=== PATIENT | female | born 1950 | race Caucasian/White ===

== ENCOUNTER 2017-08-24 16:46 | Inpatient (IN) | payer OTHER ==
[~2017-08-24] VITALS: Ht 157.5 cm; Wt 75.0 kg
[2017-08-24] MEDS ORDERED: morphine 2 MG INJ IV PRN (20:00)
[2017-08-24 20:57] VITALS: BP 122/54; RESP 18
[2017-08-24] MEDS ORDERED: NACL 0.9% 3 ML SYG IV SCH (22:30)
[2017-08-24] MEDS ORDERED: ALBUTEROL/IPRATROPIUM (NEB) 3 ML AMP HHN PRN (22:30)
[2017-08-24] MEDS ORDERED: ONDANSETRON 4 MG INJ IV PRN (22:30)
--- NOTE | 2017-08-24 23:06 | HP ---
Date/Time of Note Date/Time of Note DATE: 08/24/17 TIME: 22:34 Assessment/Plan Assessment/Plan Assessment/Plan 1. Presumed IAN -Patient with a creatinine of almost 2.4 on outside hospital. Baseline creatinine unknown -Treat with IV fluid -Urine electrolytes -Renal ultrasound -Nephrology consult 2. Ekbom's syndrome (delusional parasitosis) -Patient believes that she is infested with bugs. This is likely from illicit drug use -Will start patient on risperidone or olanzapine -Psychiatry consult will be placed 3. Hyponatremia -Likely from dehydration -NS IVF for now 4. History of COPD: No sign of acute exacerbation -Supplemental oxygen, bronchodilators and steroid as needed 5. History of hepatitis C -will check hep C antibody and also check for hep B. -If hep C confirmed, she will need to follow-up with her PCP for treatment 6. History of illicit drug use -We will place foster care social worker/upper caser consult to provide information to help her quit HPI/ROS Admit Date/Time Admit Date/Time Aug 24, 2017 at 18:52 Hx of Present Illness This is a 67-year-old female with a history of COPD, hepatitis C, IV drug use and cellulitis who initially presented to [facility] complaining of bugs coming out of her lips, ears and nose. She said mostly bugs crawls out of her lower lips and underneath her tongue. She also said she saw a bug from her left upper extremity and her lower extremities as well, the one on the lower extremity being winged. Patient is on active IV drug user. Lab shows a sodium of 128, BUN 30 and creatinine of 2.39. The rest of CBC and CMP were within normal limits. Her vitals were, BP 108/84, heart rate 114, respiratory rate 18, temp 36.3 and O2 sat of 98%. She was transferred to [facility] for insurance reasons. . Exam/Review of Systems Vital Signs Vitals Vital Signs Date Time Temp Pulse Resp B/P Pulse Ox O2 Delivery O2 Flow Rate FiO2 08/24/17 20:57 96.7 66 18 122/54 95 Exam Constitutional: alert, oriented, other (Appears somehow tired) Head: atraumatic, normocephalic ENMT: other (The back of the tongue there are 2 small erythematous pimple-like structures) Neck: non-tender, supple Respiratory: clear to auscultation, normal air movement Cardiovascular: nl pulses, regular rate and rhythm Extremities: normal pulses Skin: other (She has several old scars on her extremities mainly in the left forearm.) Medications Medications Current Medications Sodium Chloride (NS) 1,000 ml @ 75 mls/hr [id number] IV ; Start 08/24/17 at 20:00 ; Stop 08/25/17 at 20:00 Morphine Sulfate (morphine) 2 mg Q4H PRN IV PAIN; Start 08/24/17 at 20:00 Ondansetron HCl (Zofran Inj) 4 mg Q6H PRN IV NAUSEA AND/OR VOMITING; Start 08/24/17 at 20:00 Ondansetron HCl (Zofran Inj) 4 mg Q6H PRN IV NAUSEA AND/OR VOMITING; Start 08/24/17 at 22:30; Status UNV Acetaminophen (Tylenol Tab) 650 mg Q6H PRN PO PAIN LEVEL 1-3 OR FEVER; Start 08/24/17 at 22:30; Status UNV Heparin Sodium (Porcine) (Heparin (5000 Units/0.5 ml)) 5,000 unit Q12 SC ; Start 08/25/17 at 09:00; Status UNV CHRISTI BYRD MD Aug 24, 2017 22:47
[2017-08-24] MEDS ORDERED: HYDR-3011 PO (23:25)
[2017-08-24] MEDS ORDERED: METH10SO PO (23:25)
[2017-08-24] MEDS ORDERED: FLUO20CA38 PO (23:25)
[2017-08-24 23:29] VITALS: Ht 157.5 cm; Wt 75.0 kg
[2017-08-25] MEDS: RISPERIDONE 1 MG TAB PO SCH ×3 (00:12→20:41)
[2017-08-25] MEDS: SOD CHLORIDE 0.9% 1,000 ML IV SCH ×3 (00:17→15:38)
[2017-08-25 02:26] VITALS: BP 136/72; RESP 18
[2017-08-25 07:00] LABS: BASOPHILS % 0.5 % (0.0-2.0); EOSINOPHILS # 0.3 10^3/ul (0.0-0.5); HEMATOCRIT 38.6 % (37.0-47.0); LYMPHOCYTES # 3.4 10^3/ul (0.8-2.9); LYMPHOCYTES % 41.9 % (15.0-51.0); MEAN CORPUSCULAR HEMOGLOBIN 29.7 pg (29.0-33.0); MEAN CORPUSCULAR HGB CONC 33.7 g/dl (32.0-37.0); MEAN CORPUSCULAR VOLUME 88.3 fl (82.0-101.0); MEAN PLATELET VOLUME 9.5 fl (7.4-10.4); MONOCYTE # 0.6 10^3/ul (0.3-0.9); MONOCYTES % 6.9 % (0.0-11.0); NEUTROPHIL # 3.7 10^3/ul (1.6-7.5); NEUTROPHILS % 46.1 % (39.0-77.0); PLATELET COUNT 142 10^3/UL (140-415); RED BLOOD COUNT 4.37 10^6/ul (4.20-5.40); RED CELL DISTRIBUTION WIDTH 13.4 % (11.5-14.5)
[2017-08-25 07:23] LABS: ALANINE AMINOTRANSFERASE 49 IU/L (13-69); ALBUMIN 3.4 g/dl (3.3-4.9); ALKALINE PHOSPHATASE 94 IU/L (42-121); ANION GAP 13 (8-16); ASPARTATE AMINO TRANSFERASE 35 IU/L (15-46); BILIRUBIN,INDIRECT 0.3 mg/dl (0-1.1); BILIRUBIN,TOTAL 0.3 mg/dl (0.2-1.3); BLOOD UREA NITROGEN 32 mg/dl (7-20); CALCIUM 9.1 mg/dl (8.4-10.2); CARBON DIOXIDE 25 mmol/L (21-31); CHLORIDE 102 mmol/L (97-110); CHOL/HDL RATIO 4.5 RATIO; CHOLESTEROL 144 mg/dl (100-200); CREATININE 1.88 mg/dl (0.44-1.00); GLUCOSE 77 mg/dl (70-220); HDL CHOLESTEROL 32 mg/dl (35-98); MAGNESIUM 1.8 mg/dl (1.7-2.5); PHOSPHORUS 5.3 mg/dl (2.5-4.9); POTASSIUM 4.3 mmol/L (3.5-5.1); SODIUM 136 mmol/L (135-144); TOTAL PROTEIN 6.8 g/dl (6.1-8.1); TRIGLYCERIDES 173 mg/dl (0-149)
[2017-08-25 07:50] VITALS: BP 105/54; RESP 18
[2017-08-25] MEDS: HEPARIN 5,000 UNIT/0.5 ML VIAL SC SCH ×2 (09:00→20:43)
--- NOTE | 2017-08-25 09:39 | RADRPT ---
PROCEDURE: Renal US. CLINICAL INDICATION: ELEVATED CR TECHNIQUE: Multiple sonographic images of the kidneys were obtained. The images were reviewed on a PACS workstation. COMPARISON: No prior studies are available for comparison. FINDINGS: The kidneys are well visualized. The right kidney measures 8.7 x 3.9 x 4.8 cm. The left kidney measu res 9.2 x 3.8 x 4.2 cm. There are no focal areas of abnormal echogenicity. No calculus or solid mass es present. There is a 2 cm parenchymal cyst of the right kidney. There is no evidence for obstructi ve uropathy. No bladder masses stone is present. Bilateral ureteral jets were documented. IMPRESSION: No evidence of obstructive uropathy, calculus or solid renal mass. 2 cm parenchymal cyst right kidne y. .Stevie Mcintosh MD, MD Date Time Electronically viewed and signed by .Stevie Mcintosh MD, on 08/25/2017 09:39 .A/
[2017-08-25] MEDS ORDERED: METHADONE 10 MG TAB PO SCH (10:00)
[2017-08-25] MEDS: METHADONE (1 MG/1 ML PO SYG) PO SCH ×3 (12:00→20:42)
[2017-08-25 14:03] VITALS: BP 112/58; RESP 16
[2017-08-25 20:32] VITALS: BP 116/57; RESP 18
[2017-08-26 03:23] VITALS: BP 91/53; RESP 18
[2017-08-26] MEDS: SOD CHLORIDE 0.9% 1,000 ML IV SCH ×2 (04:48→18:06)
[2017-08-26 08:18] VITALS: BP 129/74; RESP 18
[2017-08-26] MEDS: METHADONE (1 MG/1 ML PO SYG) PO SCH (09:31)
[2017-08-26] MEDS: RISPERIDONE 1 MG TAB PO SCH ×2 (09:31→20:28)
[2017-08-26] MEDS: HEPARIN 5,000 UNIT/0.5 ML VIAL SC SCH ×2 (09:33→20:29)
[2017-08-26] MEDS: ACETAMINOPHEN 325 MG TAB PO PRN (11:30)
[2017-08-26 11:32] LABS: BASOPHILS % 0.5 % (0.0-2.0); EOSINOPHILS # 0.1 10^3/ul (0.0-0.5); EOSINOPHILS % 2.5 % (0.0-7.0); HEMATOCRIT 43.2 % (37.0-47.0); HEMOGLOBIN 14.4 g/dl (12.0-16.0); LYMPHOCYTES # 1.6 10^3/ul (0.8-2.9); LYMPHOCYTES % 29.7 % (15.0-51.0); MEAN CORPUSCULAR HEMOGLOBIN 29.6 pg (29.0-33.0); MEAN CORPUSCULAR HGB CONC 33.3 g/dl (32.0-37.0); MEAN CORPUSCULAR VOLUME 88.7 fl (82.0-101.0); MEAN PLATELET VOLUME 9.3 fl (7.4-10.4); MONOCYTE # 0.4 10^3/ul (0.3-0.9); MONOCYTES % 7.4 % (0.0-11.0); NEUTROPHIL # 3.3 10^3/ul (1.6-7.5); NEUTROPHILS % 59.5 % (39.0-77.0); PLATELET COUNT 128 10^3/UL (140-415); POSITIVE DIFF @See below; RED BLOOD COUNT 4.87 10^6/ul (4.20-5.40); RED CELL DISTRIBUTION WIDTH 13.5 % (11.5-14.5); WHITE BLOOD COUNT 5.5 10^3/ul (4.8-10.8)
--- NOTE | 2017-08-26 12:34 | PN ---
Date/Time of Note Date/Time of Note DATE: 08/25/17 TIME: 12:32 Assessment/Plan VTE Prophylaxis VTE Prophylaxis Intervention: SCD's Lines/Catheters IV Catheter Type (from Nrs): Peripheral IV Assessment/Plan Chief Complaint/Hosp Course subjective patient sleeping objective Physical exam General: Patient is laying in bed and answers questions appropriately Mentation: Patient is alert and oriented 4, Head: Normocephalic atraumatic Eyes: EOMI, pupils reactive to light Neck: Supple, nontender, midline Respiratory: Clear to auscultation bilaterally Cardiovascular: regular rate, no obvious murmurs Gastrointestinal: non-tender to palpation, bowel sounds heard. Neurological: Moves all extremities spontaneously Skin: No new skin lesions Assessment/Plan 1. Presumed IAN -Patient with a creatinine of almost 2.4 on outside hospital. Baseline creatinine unknown -Treat with IV fluid -Urine electrolytes -Renal ultrasound -will consult nephrology if IAN doesn't resolve 2. Ekbom's syndrome (delusional parasitosis) -Patient believes that she is infested with bugs. This is likely from illicit drug use -Will start patient on risperidone or olanzapine -Psychiatry consult outpatient 3. Hyponatremia -Likely from dehydration -NS IVF for now 4. History of COPD: No sign of acute exacerbation -Supplemental oxygen, bronchodilators and steroid as needed 5. History of hepatitis C -will check hep C antibody and also check for hep B. -If hep C confirmed, she will need to follow-up with her PCP for treatment dispo -verified dose of methadone from clinic, restarted methadone -f/u with am labs (this progress note is intended for 08/25/17, computer malfunction) Problems: Exam/Review of Systems Vital Signs Vitals Vital Signs Date Time Temp Pulse Resp B/P Pulse Ox O2 Delivery O2 Flow Rate FiO2 08/26/17 08:18 98.0 70 18 129/74 92 Intake and Output 08/25/17 08/25/17 08/26/17 14:59 22:59 06:59 Intake Total 2180 ml 1000 ml Balance 2180 ml 1000 ml Results Result Diagram: 08/26/17 1116 08/25/17 0624 Results 24 hrs Laboratory Tests Test 08/26/17 11:16 White Blood Count 5.5 # Red Blood Count 4.87 Hemoglobin 14.4 Hematocrit 43.2 Mean Corpuscular Volume 88.7 Mean Corpuscular Hemoglobin 29.6 Mean Corpuscular Hemoglobin Concent 33.3 Red Cell Distribution Width 13.5 Platelet Count 128 L Mean Platelet Volume 9.3 Neutrophils % 59.5 Lymphocytes % 29.7 Monocytes % 7.4 Eosinophils % 2.5 Basophils % 0.5 Nucleated Red Blood Cells % 0.0 Neutrophils # 3.3 Lymphocytes # 1.6 Monocytes # 0.4 Eosinophils # 0.1 Basophils # 0.0 Nucleated Red Blood Cells # 0.0 Medications Medications Current Medications Morphine Sulfate (morphine) 2 mg Q4H PRN IV PAIN; Start 08/24/17 at 20:00 Ondansetron HCl (Zofran Inj) 4 mg Q6H PRN IV NAUSEA AND/OR VOMITING; Start 08/24/17 at 20:00 Acetaminophen (Tylenol Tab) 650 mg Q6H PRN PO PAIN LEVEL 1-3 OR FEVER Last administered on 08/26/17 11:30; Admin Dose 650 MG; Start 08/24/17 at 22:30 Heparin Sodium (Porcine) (Heparin (5000 Units/0.5 ml)) 5,000 unit Q12 SC Last administered on 08/26/17 09:33; Admin Dose 5,000 UNIT; Start 08/25/17 at 09:00 Risperidone (Risperdal) 1 mg BID PO Last administered on 08/26/17 09:31; Admin Dose 1 MG; Start 08/24/17 at 23:30 Methadone HCl 108 mg 108 mg DAILY PO Last administered on 08/26/17 09:31; Admin Dose 108 MG; Start 08/25/17 at 12:00 Sodium Chloride (NS) 1,000 ml @ 70 mls/hr [id number] IV Last administered on 08/25 15:38; Admin Dose 70 MLS/HR; Start 08/25/17 at 14:30 Gabapentin (Neurontin) 100 mg TID PO ; Start 08/26/17 at 13:00 ABE BROWN Aug 26, 2017 12:34
--- NOTE | 2017-08-26 12:37 | PN ---
Date/Time of Note Date/Time of Note DATE: 08/26/17 TIME: 12:34 Assessment/Plan VTE Prophylaxis VTE Prophylaxis Intervention: ambulation, SCD's Lines/Catheters IV Catheter Type (from Nrsg): Peripheral IV Assessment/Plan Chief Complaint/Hosp Course Subjective Patient has similar complaints of bugs under her skin, also complains of left knee pain and thigh pain objective Physical exam General: Patient is laying in bed and answers questions appropriately Mentation: Patient is alert and oriented 4, Head: Normocephalic atraumatic Eyes: EOMI, pupils reactive to light Neck: Supple, nontender, midline Respiratory: Clear to auscultation bilaterally Cardiovascular: regular rate, no obvious murmurs Gastrointestinal: non-tender to palpation, bowel sounds heard. Neurological: Moves all extremities spontaneously Skin: No new skin lesions Assessment/Plan 1. Presumed IAN -Patient with a creatinine of almost 2.4 on outside hospital. Baseline creatinine unknown -Treat with IV fluid -Urine electrolytes -Renal ultrasound noted -will consult nephrology if IAN doesn't resolve 2. Ekbom's syndrome (delusional parasitosis) -Patient believes that she is infested with bugs. This is likely from illicit drug use -Will start patient on risperidone or olanzapine -Psychiatry consult outpatient 3. Hyponatremia -Likely from dehydration -NS IVF for now 4. History of COPD: No sign of acute exacerbation -Supplemental oxygen, bronchodilators and steroid as needed 5. History of hepatitis C -will check hep C antibody and also check for hep B. -viral load ordered 6. leg pain/knee pain -questionable fictitious vs real pathology for patient with strong psych issue symptoms -starting gabapentin, f/u xray dispo -verified dose of methadone from clinic, restarted methadone -renal panel was not ordered due to computer malfunction, stat cmp pending currently, will DC fluids if IAN resolved -Xray knee pending, started gabapentin for pain -DC back home if IAN resolved and xray negative Problems: Exam/Review of Systems Vital Signs Vitals Vital Signs Date Time Temp Pulse Resp B/P Pulse Ox O2 Delivery O2 Flow Rate FiO2 08/26/17 08:18 98.0 70 18 129/74 92 Intake and Output 08/25/17 08/25/17 08/26/17 14:59 22:59 06:59 Intake Total 2180 ml 1000 ml Balance 2180 ml 1000 ml Results Result Diagram: 08/26/17 1116 08/25/17 0624 Results 24 hrs Laboratory Tests Test 08/26/17 11:16 White Blood Count 5.5 # Red Blood Count 4.87 Hemoglobin 14.4 Hematocrit 43.2 Mean Corpuscular Volume 88.7 Mean Corpuscular Hemoglobin 29.6 Mean Corpuscular Hemoglobin Concent 33.3 Red Cell Distribution Width 13.5 Platelet Count 128 L Mean Platelet Volume 9.3 Neutrophils % 59.5 Lymphocytes % 29.7 Monocytes % 7.4 Eosinophils % 2.5 Basophils % 0.5 Nucleated Red Blood Cells % 0.0 Neutrophils # 3.3 Lymphocytes # 1.6 Monocytes # 0.4 Eosinophils # 0.1 Basophils # 0.0 Nucleated Red Blood Cells # 0.0 Medications Medications Current Medications Morphine Sulfate (morphine) 2 mg Q4H PRN IV PAIN; Start 08/24/17 at 20:00 Ondansetron HCl (Zofran Inj) 4 mg Q6H PRN IV NAUSEA AND/OR VOMITING; Start 08/24/17 at 20:00 Acetaminophen (Tylenol Tab) 650 mg Q6H PRN PO PAIN LEVEL 1-3 OR FEVER Last administered on 08/26/17 11:30; Admin Dose 650 MG; Start 08/24/17 at 22:30 Heparin Sodium (Porcine) (Heparin (5000 Units/0.5 ml)) 5,000 unit Q12 SC Last administered on 08/26/17 09:33; Admin Dose 5,000 UNIT; Start 08/25/17 at 09:00 Risperidone (Risperdal) 1 mg BID PO Last administered on 08/26/17 09:31; Admin Dose 1 MG; Start 08/24/17 at 23:30 Methadone HCl 108 mg 108 mg DAILY PO Last administered on 08/26/17 09:31; Admin Dose 108 MG; Start 08/25/17 at 12:00 Sodium Chloride (NS) 1,000 ml @ 70 mls/hr [id number] IV Last administered on 08/25 15:38; Admin Dose 70 MLS/HR; Start 08/25/17 at 14:30 Gabapentin (Neurontin) 100 mg TID PO ; Start 08/26/17 at 13:00 ABE BROWN Aug 26, 2017 12:37
[2017-08-26 12:50] LABS: CALCIUM 9.5 mg/dl (8.4-10.2); CREATININE 1.26 mg/dl (0.44-1.00); POTASSIUM 4.8 mmol/L (3.5-5.1)
[2017-08-26] MEDS: GABAPENTIN 100 MG CAP PO SCH ×2 (13:12→20:28)
--- NOTE | 2017-08-26 13:54 | RADRPT ---
PROCEDURE: X-RAY LEFT KNEE CLINICAL INDICATION: Left knee pain. TECHNIQUE: Three views of the left knee are available for review. COMPARISON: None available FINDINGS: There is mild medial joint space narrowing and there is medial chondrocalcinosis. There is moderate arthrosis change of the lateral compartment and there is chondrocalcinosis. Minimal patellofemoral a rthrosis is seen. There is mild fusiform thickening of the patellar tendon density which may indicat e patellar tendonitis. There is a small joint effusion. The bones are osteopenic. No evidence for ac preet fracture. IMPRESSION: 1. Moderate lateral compartment and mild medial compartment and minimal patellofemoral arthrosis. 2. Meniscal chondrocalcinosis. Findings are most likely degenerative but can be seen with pseudogou t. 3. No evidence for acute fracture. The bones are osteopenic. RPTAT: XX .Joaquin Rodriguez MD, Date Time Electronically viewed and signed by .Joaquin Rodriguez MD, on 08/26/2017 13:54 .T/
[2017-08-26] MEDS: HYDROCODONE/APAP (5/325) TAB PO PRN (14:43)
[2017-08-26 15:28] VITALS: BP 125/75; RESP 18
[2017-08-26 20:59] VITALS: BP 100/50; RESP 16
[2017-08-27 03:18] VITALS: BP 134/61; RESP 16
[2017-08-27] MEDS: SOD CHLORIDE 0.9% 1,000 ML IV SCH (04:10)
[2017-08-27 06:53] LABS: ADD UMIC YES; UR ASCORBIC ACID NEGATIVE (NEGATIVE); UR BACTERIA FEW /HPF (NONE SEEN); UR BILIRUBIN (Dip) NEGATIVE (NEGATIVE); UR BLOOD (Dip) NEGATIVE (NEGATIVE); UR CLARITY CLEAR (CLEAR); UR COLOR YELLOW (YELLOW); UR GLUCOSE (Dip) NEGATIVE (NEGATIVE); UR KETONES (Dip) NEGATIVE (NEGATIVE); UR LEUKOCYTE ESTERASE (Dip) TRACE Leu/ul (NEGATIVE); UR NITRITE (Dip) NEGATIVE (NEGATIVE); UR RBC 1 /HPF (0-5); UR SPECIFIC GRAVITY (Dip) 1.012 (1.003-1.030); UR TOTAL PROTEIN (Dip) NEGATIVE (NEGATIVE); UR UROBILINOGEN (Dip) 1+ mg/dL (NEGATIVE)
[2017-08-27 07:17] LABS: CALCIUM 8.5 mg/dl (8.4-10.2); CREATININE 1.09 mg/dl (0.44-1.00); MAGNESIUM 1.5 mg/dl (1.7-2.5); PHOSPHORUS 2.9 mg/dl (2.5-4.9); POTASSIUM 4.9 mmol/L (3.5-5.1)
[2017-08-27 07:18] LABS: POTASSIUM,URINE RANDOM 19.5 mmol/L (25-125)
[2017-08-27 08:00] VITALS: BP 141/65; RESP 18
[2017-08-27] MEDS: ONDANSETRON 4 MG INJ IV PRN (08:58)
[2017-08-27 09:06] LABS: BASOPHILS % 0.6 % (0.0-2.0); EOSINOPHILS # 0.2 10^3/ul (0.0-0.5); EOSINOPHILS % 2.4 % (0.0-7.0); HEMATOCRIT 38.3 % (37.0-47.0); HEMOGLOBIN 12.4 g/dl (12.0-16.0); LYMPHOCYTES # 1.9 10^3/ul (0.8-2.9); LYMPHOCYTES % 29.6 % (15.0-51.0); MEAN CORPUSCULAR HEMOGLOBIN 29.2 pg (29.0-33.0); MEAN CORPUSCULAR HGB CONC 32.4 g/dl (32.0-37.0); MEAN CORPUSCULAR VOLUME 90.3 fl (82.0-101.0); MEAN PLATELET VOLUME 9.8 fl (7.4-10.4); MONOCYTE # 0.5 10^3/ul (0.3-0.9); MONOCYTES % 7.8 % (0.0-11.0); NEUTROPHIL # 3.9 10^3/ul (1.6-7.5); NEUTROPHILS % 59.1 % (39.0-77.0); PLATELET COUNT 141 10^3/UL (140-415); RED BLOOD COUNT 4.24 10^6/ul (4.20-5.40); RED CELL DISTRIBUTION WIDTH 13.5 % (11.5-14.5); WHITE BLOOD COUNT 6.6 10^3/ul (4.8-10.8)
[2017-08-27] MEDS: METHADONE (1 MG/1 ML PO SYG) PO SCH (09:48)
[2017-08-27] MEDS: RISPERIDONE 1 MG TAB PO SCH ×2 (09:49→20:14)
[2017-08-27] MEDS: GABAPENTIN 100 MG CAP PO SCH ×3 (09:49→20:14)
[2017-08-27] MEDS: HEPARIN 5,000 UNIT/0.5 ML VIAL SC SCH ×2 (09:53→20:19)
--- NOTE | 2017-08-27 09:56 | PN ---
Date/Time of Note Date/Time of Note DATE: 08/27/17 TIME: 09:56 Assessment/Plan VTE Prophylaxis VTE Prophylaxis Intervention: SCD's Lines/Catheters IV Catheter Type (from Nrsg): Peripheral IV Assessment/Plan Assessment/Plan 1. IAN- improving - Patient renal function shows improvement and has been trending downward with IVF. Will stop IVF given patient is eating and drinking - Patient with a creatinine of almost 2.4 on outside hospital. Baseline creatinine unknown - Renal ultrasound noted 2. Ekbom's syndrome (delusional parasitosis) - Patient believes that she is infested with bugs. This is likely from illicit drug use - Patient started on Risperidone and will continue to monitor - Psychiatry consult outpatient 3. Hyponatremia- resolved - Likely from dehydration 4. History of COPD - stable and in no acute exacerbation - Supplemental oxygen, bronchodilators and steroid as needed 5. History of hepatitis C - Hep C Ab positive and viral load ordered 6. leg pain/knee pain - questionable fictitious vs real pathology for patient with strong psych issue symptoms - Started on Gabapentin with relief - Xray shows "Moderate lateral compartment and mild medial compartment and minimal patellofemoral arthrosis." no acute fracture appreciated 7. Disposition - PT/OT evaluation for d/c dispo - if renal function continues to improve will d/c in next 24 hours Subjective 24 Hr Interval Summary Free Text/Dictation Patient states she does not feel well but unable to pinpoint what is causing her distress. Feels like there are bugs crawling in her throat and then began to cry due to losing close friends recently. Patients mood quickly improved and was talking about her significant other and dog. Exam/Review of Systems Vital Signs Vitals Vital Signs Date Time Temp Pulse Resp B/P Pulse Ox O2 Delivery O2 Flow Rate FiO2 08/27/17 08:00 99.3 78 18 141/65 95 Intake and Output 08/26/17 08/26/17 08/27/17 15:00 23:00 07:00 Intake Total 300 ml 1510 ml Balance 300 ml 1510 ml Exam General: Patient is laying in bed and answers questions appropriately. flight of ideas as well as emotions. no acute distress Mentation: Patient is alert and oriented 4, Head: Normocephalic atraumatic Eyes: EOMI, pupils reactive to light Neck: Supple, nontender, midline Respiratory: Clear to auscultation bilaterally. no wheezes or rhonchi Cardiovascular: regular rate, no obvious murmurs Gastrointestinal: non-tender to palpation, bowel sounds heard. Neurological: Moves all extremities spontaneously Skin: No new skin lesions Results Result Diagram: 08/27/17 0810 08/27/17 0507 Results 24 hrs Laboratory Tests Test 08/26/17 11:16 08/26/17 12:15 08/27/17 05:07 08/27/17 06:25 White Blood Count 5.5 # Red Blood Count 4.87 Hemoglobin 14.4 Hematocrit 43.2 Mean Corpuscular Volume 88.7 Mean Corpuscular Hemoglobin 29.6 Mean Corpuscular Hemoglobin Concent 33.3 Red Cell Distribution Width 13.5 Platelet Count 128 L Mean Platelet Volume 9.3 Neutrophils % 59.5 Lymphocytes % 29.7 Monocytes % 7.4 Eosinophils % 2.5 Basophils % 0.5 Nucleated Red Blood Cells % 0.0 Neutrophils # 3.3 Lymphocytes # 1.6 Monocytes # 0.4 Eosinophils # 0.1 Basophils # 0.0 Nucleated Red Blood Cells # 0.0 Sodium Level 138 138 Potassium Level 4.8 4.9 Chloride Level 106 110 Carbon Dioxide Level 23 20 L Anion Gap 14 13 Blood Urea Nitrogen 25 H 21 H Creatinine 1.26 H 1.09 H Glucose Level 136 # 98 Calcium Level 9.5 8.5 Free Thyroxine 1.33 Phosphorus Level 2.9 # Magnesium Level 1.5 L Urine Color YELLOW Urine Clarity CLEAR Urine pH 5.0 Urine Specific [place] 1.012 Urine Ketones NEGATIVE Urine Nitrite NEGATIVE Urine Bilirubin NEGATIVE Urine Urobilinogen 1+ H Urine Leukocyte Esterase TRACE A Urine Microscopic RBC 1 Urine Microscopic WBC 2 Urine Bacteria FEW A Urine Hemoglobin NEGATIVE Urine Random Sodium 83 Urine Random Potassium 19.5 L Urine Glucose NEGATIVE Urine Total Protein NEGATIVE Test 08/27/17 08:10 White Blood Count 6.6 Red Blood Count 4.24 Hemoglobin 12.4 Hematocrit 38.3 Mean Corpuscular Volume 90.3 Mean Corpuscular Hemoglobin 29.2 Mean Corpuscular Hemoglobin Concent 32.4 Red Cell Distribution Width 13.5 Platelet Count 141 Mean Platelet Volume 9.8 Neutrophils % 59.1 Lymphocytes % 29.6 Monocytes % 7.8 Eosinophils % 2.4 Basophils % 0.6 Nucleated Red Blood Cells % 0.0 Neutrophils # 3.9 Lymphocytes # 1.9 Monocytes # 0.5 Eosinophils # 0.2 Basophils # 0.0 Nucleated Red Blood Cells # 0.0 Medications Medications Current Medications Ondansetron HCl (Zofran Inj) 4 mg Q6H PRN IV NAUSEA AND/OR VOMITING Last administered on 08/27/17 08:58; Admin Dose 4 MG; Start 08/24/17 at 20:00 Acetaminophen (Tylenol Tab) 650 mg Q6H PRN PO PAIN LEVEL 1-3 OR FEVER Last administered on 08/26/17 11:30; Admin Dose 650 MG; Start 08/24/17 at 22:30 Heparin Sodium (Porcine) (Heparin (5000 Units/0.5 ml)) 5,000 unit Q12 SC Last administered on 08/26/17 20:29; Admin Dose 5,000 UNIT; Start 08/25/17 at 09:00 Risperidone (Risperdal) 1 mg BID PO Last administered on 08/26/17 20:28; Admin Dose 1 MG; Start 08/24/17 at 23:30 Methadone HCl 108 mg 108 mg DAILY PO Last administered on 08/26/17 09:31; Admin Dose 108 MG; Start 08/25/17 at 12:00 Sodium Chloride (NS) 1,000 ml @ 70 mls/hr [id number] IV Last administered on 04:10; Admin Dose 70 MLS/HR; Start 08/25/17 at 14:30 Gabapentin (Neurontin) 100 mg TID PO Last administered on 08/26/17 20:28; Admin Dose 100 MG; Start 08/26/17 at 13:00 Morphine Sulfate (morphine) 2 mg Q4H PRN IV PAIN LEVEL 7-10; Start 08/26/17 at 13:30 Acetaminophen/ Hydrocodone Bitart ([place] (5/325)) 1 tab Q6H PRN PO PAIN LEVEL 4 -6 Last administered on 08/26/17 14:43; Admin Dose 1 TAB; Start 08/26/17 at 13:30 RICKY MUNIZ MD Aug 27, 2017 09:56
[2017-08-27] MEDS: HYDROCODONE/APAP (5/325) TAB PO PRN ×3 (09:57→23:22)
[2017-08-27 15:07] VITALS: BP 135/86; RESP 16
[2017-08-27 20:09] VITALS: BP 131/62; RESP 18
[2017-08-27] MEDS: ACETAMINOPHEN 325 MG TAB PO PRN (21:53)
[2017-08-28 02:07] VITALS: BP 142/70; RESP 18
[2017-08-28 07:17] LABS: ALBUMIN 3.3 g/dl (3.3-4.9); CALCIUM 9.2 mg/dl (8.4-10.2); CREATININE 1.04 mg/dl (0.44-1.00); MAGNESIUM 1.6 mg/dl (1.7-2.5); PHOSPHORUS 3.1 mg/dl (2.5-4.9); POTASSIUM 4.2 mmol/L (3.5-5.1)
[2017-08-28 07:46] VITALS: RESP 18
[2017-08-28 08:00] VITALS: BP 145/65; PULSE 88
[2017-08-28] MEDS: morphine 2 MG INJ IV PRN ×3 (08:08→15:39)
[2017-08-28] MEDS: GABAPENTIN 100 MG CAP PO SCH ×3 (09:26→21:18)
[2017-08-28] MEDS: METHADONE (1 MG/1 ML PO SYG) PO SCH ×2 (09:26→09:31)
[2017-08-28] MEDS: RISPERIDONE 1 MG TAB PO SCH ×2 (09:27→21:18)
[2017-08-28] MEDS: HEPARIN 5,000 UNIT/0.5 ML VIAL SC SCH ×2 (09:28→21:27)
--- NOTE | 2017-08-28 10:45 | PN ---
Date/Time of Note Date/Time of Note DATE: 08/28/17 TIME: 10:45 Assessment/Plan VTE Prophylaxis VTE Prophylaxis Intervention: SCD's Lines/Catheters IV Catheter Type (from Nrs): Peripheral IV Assessment/Plan Assessment/Plan 1. IAN- resolving - Renal function continues to improve - Patient with a creatinine of almost 2.4 on outside hospital. Baseline creatinine unknown - Renal ultrasound noted 2. Ekbom's syndrome (delusional parasitosis) - Patient believes that she is infested with bugs. This is likely from illicit drug use - Patient started on Risperidone with no improvement. Patient states she has been experiencing these symptoms since she lost her best friend 5 months ago. Offered psychiatrist consultation which she agreed to. Consult placed for medication recommendations 3. Hyponatremia- resolved - Likely from dehydration 4. History of COPD - stable and in no acute exacerbation - Supplemental oxygen, bronchodilators and steroid as needed 5. History of hepatitis C - Hep C Ab positive and viral load ordered 6. leg pain/knee pain - questionable fictitious vs real pathology for patient with strong psych issue symptoms - Started on Gabapentin with relief - Xray shows "Moderate lateral compartment and mild medial compartment and minimal patellofemoral arthrosis." no acute fracture appreciated - PT/OT recommending FWW 7. Disposition - Psych evaluation - PT recommending discharge home with FWW when stable Subjective 24 Hr Interval Summary Free Text/Dictation Patient very emotional and states she doesn't feel like herself. complaining of sensation of bugs crawling under her skin and out of the orafices in her face. Agreeing to speak with a psychiatrist for medication recommendations. Exam/Review of Systems Vital Signs Vitals Vital Signs Date Time Temp Pulse Resp B/P Pulse Ox O2 Delivery O2 Flow Rate FiO2 08/28/17 08:00 88 145/65 08/28/17 07:46 97.4 18 100 Intake and Output 08/27/17 08/27/17 08/28/17 14:59 22:59 06:59 Intake Total 2050 ml 550 ml Balance 2050 ml 550 ml Exam General: Patient is laying in bed and answers questions appropriately. emotional and crying when she speaks about her current medical condition Mentation: Patient is alert and oriented 4, Head: Normocephalic atraumatic Eyes: EOMI, pupils reactive to light Neck: Supple, nontender, midline Respiratory: Clear to auscultation bilaterally. no wheezes or rhonchi Cardiovascular: regular rate, no obvious murmurs Gastrointestinal: non-tender to palpation, bowel sounds heard. Neurological: Moves all extremities spontaneously Skin: No new skin lesions Results Result Diagram: 08/27/17 0810 08/28/17 05 Results 24 hrs Laboratory Tests Test 08/28/17 05:27 08/28/17 08:07 Sodium Level 137 Potassium Level 4.2 Chloride Level 104 Carbon Dioxide Level 27 Anion Gap 10 Blood Urea Nitrogen 16 Creatinine 1.04 H Glucose Level 94 Calcium Level 9.2 Phosphorus Level 3.1 Magnesium Level 1.6 L Albumin 3.3 Bedside Glucose 98 Medications Medications Current Medications Ondansetron HCl (Zofran Inj) 4 mg Q6H PRN IV NAUSEA AND/OR VOMITING Last administered on 08/27/17 08:58; Admin Dose 4 MG; Start 08/24/17 at 20:00 Acetaminophen (Tylenol Tab) 650 mg Q6H PRN PO PAIN LEVEL 1-3 OR FEVER Last administered on 08/27/17 21:53; Admin Dose 650 MG; Start 08/24/17 at 22:30 Heparin Sodium (Porcine) (Heparin (5000 Units/0.5 ml)) 5,000 unit Q12 SC Last administered on 08/28/17 09:28; Admin Dose 5,000 UNIT; Start 08/25/17 at 09:00 Risperidone (Risperdal) 1 mg BID PO Last administered on 08/28/17 09:27; Admin Dose 1 MG; Start 08/24/17 at 23:30 Methadone HCl (Methadone Liq (Ped)) 108 mg DAILY PO Last administered on 09:31; Admin Dose 108 MG; Start 08/25/17 at 12:00 Gabapentin (Neurontin) 100 mg TID PO Last administered on 08/28/17 09:26; Admin Dose 100 MG; Start 08/26/17 at 13:00 Morphine Sulfate (morphine) 2 mg Q4H PRN IV PAIN LEVEL 7-10 Last administered on 08/28/17 08:08; Admin Dose 2 MG; Start 08/26/17 at 13:30 Acetaminophen/ Hydrocodone Bitart ([place] (5/325)) 1 tab Q6H PRN PO PAIN LEVEL 4 -6 Last administered on 12/11/17at 23:22; Admin Dose 1 TAB; Start 08/26/17 at 13:30 RICKY MUNIZ MD Aug 28, 2017 10:45
[2017-08-28] MEDS ORDERED: hydrOXYzine HCL 10 MG TAB PO PRN (11:00)
[2017-08-28] MEDS ORDERED: POLYETHYLENE GLYCOL 17 GM PACKET PO PRN (11:00)
[2017-08-28 14:07] VITALS: BP 123/56; RESP 19
[2017-08-28] MEDS: VITAMIN A & D 5 GM OINT PACKET TOP SCH ×2 (16:53→21:18)
[2017-08-28] MEDS: FLUOXETINE 20 MG CAP PO SCH (16:53)
--- NOTE | 2017-08-28 16:55 | PSY ---
Date/Time of Note Date/Time of Note DATE: 08/28/17 TIME: 16:50 Psychiatric Subjective Eval Consent Pt consented to telemedicine: Yes Subjective Evaluation Patient location: emergency Chief Complaint: bugs crawling under my skin History of present illness 67 yo disabled female with multiple medical problems and long h heroin addiction, on methadone; pt c/o bugs and insects crawling under her skin, falling out of her mouth and ears and eyes. She says it has been happening since her friend dies about a year ago. Interestingly enough even though this presentation is more typical for the patients with hx stimulants use, the pt denies using meth or cocaine. UDS not available. Pt says she is depressed, she is on prozac 20 mg, but she denies any SI or HI, denies feeling hopeles. Past psychiatric history pt reports no hx hospitalizations or SA Family History denies Medical history chart reviewed Allergies: Coded Allergies: No Known Allergies (Verified Allergy, Unknown, 08/24/17) Substance Abuse Substance abuse history: Yes Prior substance abuse treatmen: Yes Social History Marital status: Level of education: HS DPA/Conservatorship: No Occupation/[employer]: disabled Psychiatric Objective Eval Review of Systems: Review of Systems: Not Applicable Physical Examination: Physical Examination: Not Applicable Mental Status Examination: Appearance: Disheveled Eye Contact: Good Psychomotor Activity: Normal Behavior: Cooperative Speech: Clear AFFECT: Anxious Mood: Anxious Though Process: Linear Thought Content: Delusions, Hallucinations Suicidal: No Homicidal: No On 72 hour hold: No Orientation: x4 Cognition: Alert Insight: Impared Judgement: Impared Attention Span: Intact Laboratory Results Laboratory Tests Test 08/27/17 05:07 08/27/17 06:25 08/27/17 08:10 08/28/17 05:27 Sodium Level 138mmol/L 137mmol/L Potassium Level 4.9mmol/L 4.2mmol/L Chloride Level 110mmol/L 104mmol/L Carbon Dioxide Level 20mmol/L 27mmol/L Anion Gap 13 10 Blood Urea Nitrogen 21mg/dl 16mg/dl Creatinine 1.09mg/dl 1.04mg/dl Glucose Level 98mg/dl 94mg/dl Calcium Level 8.5mg/dl 9.2mg/dl Phosphorus Level 2.9mg/dl 3.1mg/dl Magnesium Level 1.5mg/dl 1.6mg/dl Urine Color YELLOW Urine Clarity CLEAR Urine pH 5.0 Urine Specific [place] 1.012 Urine Ketones NEGATIVEmg/dL Urine Nitrite NEGATIVEmg/dL Urine Bilirubin NEGATIVEmg/dL Urine Urobilinogen 1+mg/dL Urine Leukocyte Esterase TRACELeu/ul Urine Microscopic RBC 1/HPF Urine Microscopic WBC 2/HPF Urine Bacteria FEW/HPF Urine Hemoglobin NEGATIVEmg/dL Urine Random Sodium 83mmol/L Urine Random Potassium 19.5mmol/L Urine Glucose NEGATIVEmg/dL Urine Total Protein NEGATIVEmg/dl White Blood Count 6.610^3/ul Red Blood Count 4.2410^6/ul Hemoglobin 12.4g/dl Hematocrit 38.3% Mean Corpuscular Volume 90.3fl Mean Corpuscular Hemoglobin 29.2pg Mean Corpuscular Hemoglobin Concent 32.4g/dl Red Cell Distribution Width 13.5% Platelet Count 93760^3/UL Mean Platelet Volume 9.8fl Neutrophils % 59.1% Lymphocytes % 29.6% Monocytes % 7.8% Eosinophils % 2.4% Basophils % 0.6% Nucleated Red Blood Cells % 0.0/100WBC Neutrophils # 3.910^3/ul Lymphocytes # 1.910^3/ul Monocytes # 0.510^3/ul Eosinophils # 0.210^3/ul Basophils # 0.010^3/ul Nucleated Red Blood Cells # 0.010^3/ul Albumin 3.3g/dl Test 08/28/17 08:07 Bedside Glucose 98mg/dL Assessment and Plan Assessment/Diagnosis Eldon I: Unspecified psychotic disorder. Opiate use disorder. Eldon II: defered Eldon III: as per record Eldon IV: moderate Eldon V: gaf 45 Recommendation/Plan Medication Management Agree with risperidone; consider increasing to 0.5 mg po bid and 1-2 mg poqhs if not adverse effects. continue on prozac 20 mg poqd. Psychotherapy defer to outpt Pt. Caregiver/Family Education n/a Follow-up/Disposition refer to outpt mental health upon discharge AMBER FINE MD Aug 28, 2017 16:55
[2017-08-28] MEDS: HYDROCODONE/APAP (5/325) TAB PO PRN (18:28)
[2017-08-28 20:36] VITALS: BP 115/55; RESP 18
[2017-08-29 02:00] VITALS: BP 125/52; RESP 18
[2017-08-29 06:33] LABS: CALCIUM 9.3 mg/dl (8.4-10.2); CREATININE 1.16 mg/dl (0.44-1.00); MAGNESIUM 1.5 mg/dl (1.7-2.5); PHOSPHORUS 3.6 mg/dl (2.5-4.9); POTASSIUM 5.2 mmol/L (3.5-5.1)
[2017-08-29 08:01] VITALS: BP 107/56; RESP 16
[2017-08-29] MEDS: RISPERIDONE 1 MG TAB PO SCH ×3 (09:00→20:13)
[2017-08-29] MEDS: VITAMIN A & D 5 GM OINT PACKET TOP SCH ×2 (09:23→20:13)
[2017-08-29] MEDS: FLUOXETINE 20 MG CAP PO SCH (09:23)
[2017-08-29] MEDS: METHADONE (1 MG/1 ML PO SYG) PO SCH (09:23)
[2017-08-29] MEDS: GABAPENTIN 100 MG CAP PO SCH ×3 (09:23→20:13)
[2017-08-29] MEDS: HEPARIN 5,000 UNIT/0.5 ML VIAL SC SCH ×2 (09:32→20:20)
[2017-08-29] MEDS: morphine 2 MG INJ IV PRN ×3 (09:35→20:21)
--- NOTE | 2017-08-29 11:09 | PN ---
Date/Time of Note Date/Time of Note DATE: 08/29/17 TIME: 11:09 Assessment/Plan VTE Prophylaxis VTE Prophylaxis Intervention: SCD's Lines/Catheters IV Catheter Type (from Nrs): Peripheral IV Urinary Cath still in place: No Assessment/Plan Assessment/Plan 1. IAN - Renal function has been stable but Cr slightly elevated this am. Will decrease dose of Risperidol to 0.5 mg BID - Patient with a creatinine of almost 2.4 on outside hospital records. Baseline creatinine unknown - Renal ultrasound noted 2. Ekbom's syndrome (delusional parasitosis) - Patient believes that she is infested with bugs. This is likely from illicit drug use - Patient started on Risperidone with no improvement. Patient states she has been experiencing these symptoms since she lost her best friend 5 months ago. - Telepsych consultation appreciated and agree with continuing patient on Prozac as well as risperidol. Patient will need outpatient psych follow up 3. Hyponatremia- resolved - Likely from dehydration 4. History of COPD - stable and in no acute exacerbation - Supplemental oxygen, bronchodilators and steroid as needed 5. History of hepatitis C - Hep C Ab positive and viral load negative 6. leg pain/knee pain - questionable fictitious vs real pathology for patient with strong psych issue symptoms - Started on Gabapentin with relief - Xray shows "Moderate lateral compartment and mild medial compartment and minimal patellofemoral arthrosis." no acute fracture appreciated - PT/OT recommending FWW 7. hyperkalemia - given dose Kayexalate - continue to monitor - asymptomatic 8. HypoMg - 1.5, replaced 9. Disposition - Cr slightly elevated, if trending down in the am with adjustment of medication , will d/c with recommendations to follow up with psych as outpatient Subjective 24 Hr Interval Summary Free Text/Dictation Patient states she is still thinks she is spitting up bugs but when examined sputum was just coffee tinged as well as cookie crumbs which she had just finished eating. No acute overnight events. Exam/Review of Systems Vital Signs Vitals Vital Signs Date Time Temp Pulse Resp B/P Pulse Ox O2 Delivery O2 Flow Rate FiO2 08/29/17 08:01 98.4 63 16 107/56 95 Intake and Output 08/28/17 08/28/17 08/29/17 14:59 22:59 06:59 Intake Total 820 ml 600 ml Balance 820 ml 600 ml Exam General: Patient is laying in bed and answers questions appropriately. in no acute distress. eating and drinking in no acute distress Mentation: Patient is alert and oriented 4, Head: Normocephalic atraumatic Eyes: EOMI, pupils reactive to light Neck: Supple, nontender, midline Respiratory: Clear to auscultation bilaterally. no wheezes or rhonchi Cardiovascular: regular rate, no obvious murmurs Gastrointestinal: non-tender to palpation, bowel sounds heard. Neurological: Moves all extremities spontaneously Skin: No new skin lesions Results Result Diagram: 08/27/17 0810 08/29/17 0504 Results 24 hrs Laboratory Tests Test 08/29/17 05:04 Sodium Level 139 Potassium Level 5.2 H Chloride Level 105 Carbon Dioxide Level 29 Anion Gap 10 Blood Urea Nitrogen 14 Creatinine 1.16 H Glucose Level 72 Calcium Level 9.3 Phosphorus Level 3.6 Magnesium Level 1.5 L Albumin 3.0 L Medications Medications Current Medications Ondansetron HCl (Zofran Inj) 4 mg Q6H PRN IV NAUSEA AND/OR VOMITING Last administered on 08/27/17 08:58; Admin Dose 4 MG; Start 08/24/17 at 20:00 Acetaminophen (Tylenol Tab) 650 mg Q6H PRN PO PAIN LEVEL 1-3 OR FEVER Last administered on 08/27/17 21:53; Admin Dose 650 MG; Start 08/24/17 at 22:30 Heparin Sodium (Porcine) (Heparin (5000 Units/0.5 ml)) 5,000 unit Q12 SC Last administered on 08/29/17 09:32; Admin Dose 5,000 UNIT; Start 08/25/17 at 09:00 Methadone HCl (Methadone Liq (Ped)) 108 mg DAILY PO Last administered on 09:23; Admin Dose 108 MG; Start 08/25/17 at 12:00 Gabapentin (Neurontin) 100 mg TID PO Last administered on 08/29/17 09:23; Admin Dose 100 MG; Start 08/26/17 at 13:00 Morphine Sulfate (morphine) 2 mg Q4H PRN IV PAIN LEVEL 7-10 Last administered on 08/29/17 09:35; Admin Dose 2 MG; Start 08/26/17 at 13:30 Acetaminophen/ Hydrocodone Bitart ([place] (5/325)) 1 tab Q6H PRN PO PAIN LEVEL 4 -6 Last administered on 08/28/17 18:28; Admin Dose 1 TAB; Start 08/26/17 at 13:30 Hydroxyzine HCl (Atarax) 10 mg Q6H PRN PO ITCHING; Start 08/28/17 at 11:00 Polyethylene Glycol (Miralax) 17 gm DAILY PRN PO CONSTIPATION; Start 08/28/17 at 11:00 Vitamin A/Vitamin D (Vitamin A & D Oint) 1 applic BID TOP Last administered on 08/29/17 09:23; Admin Dose 1 APPLIC; Start 08/28/17 at 11:00 Fluoxetine HCl (Prozac) 20 mg DAILY PO Last administered on 08/29/17 09:23; Admin Dose 20 MG; Start 08/28/17 at 15:30 Risperidone (Risperdal) 0.5 mg BID PO Last administered on 08/29/17 09:23; Admin Dose 0.5 MG; Start 08/29/17 at 09:30 RICKY MUNIZ MD Aug 29, 2017 11:09
[2017-08-29] MEDS: FAMOTIDINE 20 MG TAB PO SCH (12:46)
[2017-08-29] MEDS: HYDROCODONE/APAP (5/325) TAB PO PRN ×3 (12:46→23:42)
[2017-08-29] MEDS ORDERED: NA POLYST SULFON 15 GM/60 ML BTL PO ONE (14:30)
[2017-08-29] MEDS: ONDANSETRON 4 MG INJ IV PRN (14:42)
[2017-08-29 15:00] VITALS: BP 105/52; RESP 18
[2017-08-29] MEDS ORDERED: MAGNESIUM SULFATE 2 GM/50 ML 50 ML IVPB ONE (16:00)
[2017-08-29 20:23] VITALS: BP 120/53; RESP 20
[2017-08-30] MEDS: morphine 2 MG INJ IV PRN ×5 (00:36→21:33)
[2017-08-30 02:00] VITALS: BP 116/57; RESP 19
[2017-08-30 07:50] LABS: CALCIUM 8.9 mg/dl (8.4-10.2); CREATININE 0.96 mg/dl (0.44-1.00); MAGNESIUM 1.8 mg/dl (1.7-2.5); PHOSPHORUS 3.9 mg/dl (2.5-4.9); POTASSIUM 4.4 mmol/L (3.5-5.1)
[2017-08-30 07:57] VITALS: BP 129/56; RESP 16
[2017-08-30] MEDS: FAMOTIDINE 20 MG TAB PO SCH (09:00)
[2017-08-30] MEDS: FLUOXETINE 20 MG CAP PO SCH (09:00)
[2017-08-30] MEDS: GABAPENTIN 100 MG CAP PO SCH ×3 (09:00→20:29)
[2017-08-30] MEDS: HYDROCODONE/APAP (5/325) TAB PO PRN ×2 (09:00→20:35)
[2017-08-30] MEDS: VITAMIN A & D 5 GM OINT PACKET TOP SCH ×2 (09:00→20:29)
[2017-08-30] MEDS: RISPERIDONE 1 MG TAB PO SCH ×2 (09:01→20:29)
[2017-08-30] MEDS: HEPARIN 5,000 UNIT/0.5 ML VIAL SC SCH ×2 (09:02→20:30)
--- NOTE | 2017-08-30 12:10 | PN ---
Date/Time of Note Date/Time of Note DATE: 08/30/17 TIME: 12:10 Assessment/Plan VTE Prophylaxis VTE Prophylaxis Intervention: SCD's Lines/Catheters IV Catheter Type (from Nrs): Saline Lock Urinary Cath still in place: No Assessment/Plan Assessment/Plan 1. Acute kidney injury- resolved - Renal function is back to baseline. Will continue dose of Risperidol to 0.5 mg BID - Patient with a creatinine of almost 2.4 on outside hospital records. - Renal ultrasound noted 2. Ekbom's syndrome (delusional parasitosis) - Patient believes that she is infested with bugs. This is likely from illicit drug use - Patient started on Risperidone with no improvement but with increase in dose of Risperdal, her kidney function worsened. Patient states she has been experiencing these symptoms for the past year - Will increase dose of Prozac - Telepsych consultation appreciated and agree with continuing patient on Prozac as well as Risperdal. Patient will need outpatient psych follow up 3. Hyponatremia- resolved - Likely from dehydration 4. History of COPD - stable and in no acute exacerbation 5. History of hepatitis C - Hep C Ab positive and viral load negative 6. leg pain/knee pain - questionable fictitious vs real pathology for patient with strong psych issue symptoms - Started on Gabapentin with relief - Xray shows "Moderate lateral compartment and mild medial compartment and minimal patellofemoral arthrosis." no acute fracture appreciated - PT/OT recommending FWW 7. hyperkalemia- resolved - continue to monitor - asymptomatic 8. HypoMg - 1.8 9. Disposition - Stable for discharge but patient refusing to return home due to bug infestation. Will re discuss with patient and ask assistance of SW Subjective 24 Hr Interval Summary Free Text/Dictation Patient still thinks she has bugs crawling in her mouth and on her tongue. She was complaining of her left arm being asleep but she was laying on her left side asleep prior to my entering the room. When discussed her renal function has improved and shes stable to go home she started to cry and stated she could not go home to house full of bugs. Exam/Review of Systems Vital Signs Vitals Vital Signs Date Time Temp Pulse Resp B/P Pulse Ox O2 Delivery O2 Flow Rate FiO2 08/30/17 07:57 98.0 66 16 129/56 96 Intake and Output 08/29/17 08/29/17 08/30/17 15:00 23:00 07:00 Intake Total 970 ml 600 ml Balance 970 ml 600 ml Exam General: Patient is laying in bed and answers questions appropriately. in no acute distress. started crying when discussed discharge Mentation: Patient is alert and oriented 4, Head: Normocephalic atraumatic Eyes: EOMI, pupils reactive to light Neck: Supple, nontender, midline Respiratory: Clear to auscultation bilaterally. no wheezes or rhonchi Cardiovascular: regular rate, no obvious murmurs Gastrointestinal: non-tender to palpation, bowel sounds heard. no rebound or guarding Neurological: Moves all extremities spontaneously Skin: No new skin lesions Results Result Diagram: 08/27/17 0810 08/30/17 0543 Results 24 hrs Laboratory Tests Test 08/30/17 05:43 Sodium Level 139 Potassium Level 4.4 Chloride Level 103 Carbon Dioxide Level 26 Anion Gap 14 Blood Urea Nitrogen 14 Creatinine 0.96 Glucose Level 78 Calcium Level 8.9 Phosphorus Level 3.9 Magnesium Level 1.8 Albumin 3.0 L Medications Medications Current Medications Ondansetron HCl (Zofran Inj) 4 mg Q6H PRN IV NAUSEA AND/OR VOMITING Last administered on 08/29/17 14:42; Admin Dose 4 MG; Start 08/24/17 at 20:00 Acetaminophen (Tylenol Tab) 650 mg Q6H PRN PO PAIN LEVEL 1-3 OR FEVER Last administered on 08/27/17 21:53; Admin Dose 650 MG; Start 08/24/17 at 22:30 Heparin Sodium (Porcine) (Heparin (5000 Units/0.5 ml)) 5,000 unit Q12 SC Last administered on 08/30/17 09:02; Admin Dose 5,000 UNIT; Start 08/25/17 at 09:00 Methadone HCl (Methadone Liq (Ped)) 108 mg DAILY PO Last administered on 09:23; Admin Dose 108 MG; Start 08/25/17 at 12:00 Gabapentin (Neurontin) 100 mg TID PO Last administered on 08/30/17 09:00; Admin Dose 100 MG; Start 08/26/17 at 13:00 Morphine Sulfate (morphine) 2 mg Q4H PRN IV PAIN LEVEL 7-10 Last administered on 08/30/17 10:20; Admin Dose 2 MG; Start 08/26/17 at 13:30 Acetaminophen/ Hydrocodone Bitart ([place] (5/325)) 1 tab Q6H PRN PO PAIN LEVEL 4 -6 Last administered on 08/30/17 09:00; Admin Dose 1 TAB; Start 08/26/17 at 13:30 Hydroxyzine HCl (Atarax) 10 mg Q6H PRN PO ITCHING; Start 08/28/17 at 11:00 Polyethylene Glycol (Miralax) 17 gm DAILY PRN PO CONSTIPATION; Start 08/28/17 at 11:00 Vitamin A/Vitamin D (Vitamin A & D Oint) 1 applic BID TOP Last administered on 08/29/17 20:13; Admin Dose 1 APPLIC; Start 08/28/17 at 11:00 Fluoxetine HCl (Prozac) 20 mg DAILY PO Last administered on 08/30/17 09:00; Admin Dose 20 MG; Start 08/28/17 at 15:30 Risperidone (Risperdal) 0.5 mg BID PO Last administered on 08/30/17 09:01; Admin Dose 0.5 MG; Start 08/29/17 at 09:30 Famotidine (Pepcid) 20 mg DAILY PO Last administered on 08/30/17 09:00; Admin Dose 20 MG; Start 08/29/17 at 11:30 RICKY MUNIZ MD Aug 30, 2017 12:10
[2017-08-30] MEDS: METHADONE (1 MG/1 ML PO SYG) PO SCH (12:11)
[2017-08-30 14:36] VITALS: BP 110/50; RESP 18
[2017-08-30 20:00] VITALS: BP 133/68; RESP 20
[2017-08-31] MEDS: HYDROCODONE/APAP (5/325) TAB PO PRN ×2 (02:23→11:29)
[2017-08-31 02:30] VITALS: BP 161/72; RESP 16
[2017-08-31] MEDS: morphine 2 MG INJ IV PRN ×4 (04:47→22:30)
[2017-08-31] MEDS: RISPERIDONE 1 MG TAB PO SCH ×2 (09:01→20:58)
[2017-08-31] MEDS: GABAPENTIN 100 MG CAP PO SCH ×3 (09:02→20:58)
[2017-08-31] MEDS: FAMOTIDINE 20 MG TAB PO SCH (09:03)
[2017-08-31] MEDS: VITAMIN A & D 5 GM OINT PACKET TOP SCH ×2 (09:05→20:58)
[2017-08-31] MEDS: FLUOXETINE 10 MG CAP PO SCH (09:05)
[2017-08-31] MEDS: HEPARIN 5,000 UNIT/0.5 ML VIAL SC SCH ×2 (09:06→20:59)
[2017-08-31] MEDS: METHADONE (1 MG/1 ML PO SYG) PO SCH (09:42)
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
[2017-08-31 14:15] VITALS: BP 145/75; PULSE 78; RESP 16
[2017-08-31 19:40] VITALS: BP 140/68; RESP 18
--- NOTE | 2017-08-31 23:08 | RADRPT ---
PROCEDURE: XR Chest. CLINICAL INDICATION: Cough. TECHNIQUE: Single frontal view of the chest was obtained COMPARISON: None FINDINGS: The heart and mediastinum are within normal limits. Probable calcified granuloma in the left upper lobe. No focal consolidations, pleural effusions, or pneumothorax is seen. The osseous structures are unremarkable. IMPRESSION: 1. No acute cardiopulmonary disease. RPTAT:AAJJ Physician Bennett Date Time Electronically viewed and signed by Lulú Cabrales Physician on 08/31/2017 23:08 /
[2017-09-01] MEDS: ALBUTEROL/IPRATROPIUM (NEB) 3 ML AMP HHN SCH ×4 (00:16→16:25)
[2017-09-01] MEDS: HYDROCODONE/APAP (5/325) TAB PO PRN ×3 (00:29→19:51)
[2017-09-01 02:07] VITALS: BP 133/63; RESP 18
[2017-09-01] MEDS ORDERED: ALBUTEROL/IPRATROPIUM (NEB) 3 ML AMP ONE (05:02)
[2017-09-01 07:51] VITALS: BP 140/67; RESP 17
[2017-09-01] MEDS: GABAPENTIN 100 MG CAP PO SCH ×2 (09:18→20:29)
[2017-09-01] MEDS: METHADONE (1 MG/1 ML PO SYG) PO SCH (09:18)
[2017-09-01] MEDS: FLUOXETINE 10 MG CAP PO SCH (09:19)
[2017-09-01] MEDS: FAMOTIDINE 20 MG TAB PO SCH (09:20)
[2017-09-01] MEDS: RISPERIDONE 1 MG TAB PO SCH ×2 (09:20→20:29)
[2017-09-01] MEDS: VITAMIN A & D 5 GM OINT PACKET TOP SCH ×2 (09:20→20:29)
[2017-09-01] MEDS: HEPARIN 5,000 UNIT/0.5 ML VIAL SC SCH ×2 (09:23→20:30)
--- NOTE | 2017-09-01 13:53 | PN ---
Date/Time of Note Date/Time of Note DATE: 09/01/17 TIME: 13:53 Assessment/Plan VTE Prophylaxis VTE Prophylaxis Intervention: SCD's Lines/Catheters IV Catheter Type (from Nrs): Saline Lock Urinary Cath still in place: No Assessment/Plan Assessment/Plan 1. Acute kidney injury- resolved - Renal function is back to baseline. Will continue dose of Risperidol to 0.5 mg BID - Patient with a creatinine of almost 2.4 on outside hospital records. - Renal ultrasound noted 2. Ekbom's syndrome (delusional parasitosis) - Patient believes that she is infested with bugs. This is likely from illicit drug use - Patient started on Risperidone but no improvement. Will increase night time dose to 1mg per Psych recommendations. - Prozac 30mg - Telepsych consultation appreciated and agree with continuing patient on Prozac as well as Risperdal. Patient will need outpatient psych follow up 3. Hyponatremia- resolved - Likely from dehydration 4. History of COPD - stable and in no acute exacerbation 5. History of hepatitis C - Hep C Ab positive and viral load negative - Completed Cuauhtemoc 6. leg pain/knee pain- resolved - questionable fictitious vs real pathology for patient with strong psych issue symptoms - Started on Gabapentin with relief - Xray shows "Moderate lateral compartment and mild medial compartment and minimal patellofemoral arthrosis." no acute fracture appreciated - PT/OT recommending FWW 7. hyperkalemia- resolved - continue to monitor - asymptomatic 8. Congestion - will try nasal saline 9. Disposition - Crying stating whole body hurts with bugs crawling but agreeable for discharge on Sunday. Will continue with encouraging patient to transition home sooner. Subjective 24 Hr Interval Summary Free Text/Dictation Patient still upset about methadone form and explained unable to give her the dose she requires in pill form. She still is persistent about feeling as if bugs are crawling inside of her and concerned about the veins in her hands. No changes seen since yesterday appearance burt. Exam/Review of Systems Vital Signs Vitals Vital Signs Date Time Temp Pulse Resp B/P Pulse Ox O2 Delivery O2 Flow Rate FiO2 09/01/17 08:47 87 20 98 21 09/01/17 07:51 97.9 140/67 09/01/17 00:31 1.0 08/31/17 14:15 Room Air Intake and Output 08/31/17 08/31/17 09/01/17 15:00 23:00 07:00 Intake Total 1680 ml 750 ml Balance 1680 ml 750 ml Exam General: Patient is laying in bed and answers questions appropriately. still c/ o bugs crawling in her nose and mouth and under her skin Mentation: Patient is alert and oriented 4, Head: Normocephalic atraumatic Eyes: EOMI, pupils reactive to light Neck: Supple, nontender, midline Respiratory: Clear to auscultation bilaterally. no wheezes or rhonchi Cardiovascular: regular rate, no obvious murmurs Gastrointestinal: non-tender to palpation, bowel sounds heard. no rebound or guarding Neurological: Moves all extremities spontaneously Results Result Diagram: 08/30/17 0543 Medications Medications Current Medications Ondansetron HCl (Zofran Inj) 4 mg Q6H PRN IV NAUSEA AND/OR VOMITING Last administered on 08/29/17 14:42; Admin Dose 4 MG; Start 08/24/17 at 20:00 Acetaminophen (Tylenol Tab) 650 mg Q6H PRN PO PAIN LEVEL 1-3 OR FEVER Last administered on 08/27/17 21:53; Admin Dose 650 MG; Start 08/24/17 at 22:30 Heparin Sodium (Porcine) (Heparin (5000 Units/0.5 ml)) 5,000 unit Q12 SC Last administered on 09/01/17 09:23; Admin Dose 5,000 UNIT; Start 08/25/17 at 09:00 Methadone HCl (Methadone Liq (Ped)) 108 mg DAILY PO Last administered on 09:18; Admin Dose 108 MG; Start 08/25/17 at 12:00 Gabapentin (Neurontin) 100 mg TID PO Last administered on 09/01/17 09:18; Admin Dose 100 MG; Start 08/26/17 at 13:00 Acetaminophen/ Hydrocodone Bitart ([place] (5/325)) 1 tab Q6H PRN PO PAIN LEVEL 4 -6 Last administered on 09/01/17 00:29; Admin Dose 1 TAB; Start 08/26/17 at 13:30 Hydroxyzine HCl (Atarax) 10 mg Q6H PRN PO ITCHING; Start 08/28/17 at 11:00 Polyethylene Glycol (Miralax) 17 gm DAILY PRN PO CONSTIPATION; Start 08/28/17 at 11:00 Vitamin A/Vitamin D (Vitamin A & D Oint) 1 applic BID TOP Last administered on 09/01/17 09:20; Admin Dose 1 APPLIC; Start 08/28/17 at 11:00 Risperidone (Risperdal) 0.5 mg BID PO Last administered on 09/01/17 09:20; Admin Dose 0.5 MG; Start 08/29/17 at 09:30 Famotidine (Pepcid) 20 mg DAILY PO Last administered on 09/01/17 09:20; Admin Dose 20 MG; Start 08/29/17 at 11:30 Fluoxetine HCl (Prozac) 30 mg DAILY PO Last administered on 09/01/17 09:19; Admin Dose 30 MG; Start 08/31/17 at 09:00 RICKY MUNIZ MD Sep 01, 2017 13:53
[2017-09-01] MEDS ORDERED: CEPASTAT LOZENGE MT PRN (14:00)
[2017-09-01] MEDS ORDERED: SALINE 0.65% 45 ML NAS SPRAY NASAL PRN (14:00)
[2017-09-01 14:51] VITALS: BP 143/65; RESP 16
[2017-09-01 20:00] VITALS: BP 145/72; RESP 18
[2017-09-02 02:00] VITALS: BP 187/83; RESP 19
[2017-09-02] MEDS: HYDROCODONE/APAP (5/325) TAB PO PRN ×3 (02:08→13:52)
[2017-09-02 02:30] VITALS: BP 142/78; PULSE 72
[2017-09-02 07:25] VITALS: BP 140/74; RESP 18
[2017-09-02] MEDS: FLUOXETINE 10 MG CAP PO SCH (08:36)
[2017-09-02] MEDS: GABAPENTIN 100 MG CAP PO SCH ×2 (08:36→13:52)
[2017-09-02] MEDS: FAMOTIDINE 20 MG TAB PO SCH (08:36)
[2017-09-02] MEDS: RISPERIDONE 1 MG TAB PO SCH (08:36)
[2017-09-02] MEDS: HEPARIN 5,000 UNIT/0.5 ML VIAL SC SCH (08:38)
[2017-09-02] MEDS: METHADONE (1 MG/1 ML PO SYG) PO SCH (08:39)
[2017-09-02] MEDS: VITAMIN A & D 5 GM OINT PACKET TOP SCH (08:39)
[2017-09-02] MEDS: ALBUTEROL/IPRATROPIUM (NEB) 3 ML AMP HHN SCH (08:50)
--- NOTE | 2017-09-02 10:30 | PN ---
Date/Time of Note Date/Time of Note DATE: 09/02/17 TIME: 10:30 Assessment/Plan VTE Prophylaxis VTE Prophylaxis Intervention: SCD's Lines/Catheters IV Catheter Type (from Nrs): Saline Lock Urinary Cath still in place: No Assessment/Plan Assessment/Plan 1. Acute kidney injury- resolved - Renal function is back to baseline. Will continue dose of Risperidol to 0.5 mg BID - Patient with a creatinine of almost 2.4 on outside hospital records. - Renal ultrasound noted 2. Ekbom's syndrome (delusional parasitosis) - Patient believes that she is infested with bugs. This is likely from illicit drug use - Patient started on Risperidone. - Prozac 30mg - Telepsych consultation appreciated and agree with continuing patient on Prozac as well as Risperdal. Patient will need outpatient psych follow up 3. Hyponatremia- resolved - Likely from dehydration 4. History of COPD - stable and in no acute exacerbation 5. History of hepatitis C - Hep C Ab positive and viral load negative - Completed Cuauhtemoc 6. leg pain/knee pain- resolved - questionable fictitious vs real pathology for patient with strong psych issue symptoms - Started on Gabapentin with relief - Xray shows "Moderate lateral compartment and mild medial compartment and minimal patellofemoral arthrosis." no acute fracture appreciated - PT/OT recommending FWW 7. hyperkalemia- resolved - continue to monitor - asymptomatic 8. Congestion - Nasal saline 9. Disposition - Patient agreeable to be discharge after visiting with her dog. No acute medical issues at this time warranting hospitalization and will d/c home today. Subjective 24 Hr Interval Summary Free Text/Dictation Patient still complaining of sore throat and nasal congestion. Concerned that there was a bug on her spoon this am although just looked like dirt. No acute overnight events. Patient ready for discharge. Exam/Review of Systems Vital Signs Vitals Vital Signs Date Time Temp Pulse Resp B/P Pulse Ox O2 Delivery O2 Flow Rate FiO2 09/02/17 08:50 80 17 97 21 09/02/17 07:25 98.7 140/74 09/01/17 16:39 2.0 09/01/17 16:38 Nasal Cannula Intake and Output 09/01/17 09/01/17 09/02/17 15:00 23:00 07:00 Intake Total 800 ml 700 ml Balance 800 ml 700 ml Exam General: Patient is laying in bed and answers questions appropriately. Mentation: Patient is alert and oriented 4, Head: Normocephalic atraumatic Eyes: EOMI, pupils reactive to light Neck: Supple, nontender, midline Respiratory: Clear to auscultation bilaterally. no wheezes or rhonchi Cardiovascular: regular rate, no obvious murmurs Gastrointestinal: non-tender to palpation, bowel sounds heard. no rebound or guarding Neurological: Moves all extremities spontaneously Results Result Diagram: 08/30/17 0543 Medications Medications Current Medications Ondansetron HCl (Zofran Inj) 4 mg Q6H PRN IV NAUSEA AND/OR VOMITING Last administered on 08/29/17 14:42; Admin Dose 4 MG; Start 08/24/17 at 20:00 Acetaminophen (Tylenol Tab) 650 mg Q6H PRN PO PAIN LEVEL 1-3 OR FEVER Last administered on 08/27/17 21:53; Admin Dose 650 MG; Start 08/24/17 at 22:30 Heparin Sodium (Porcine) (Heparin (5000 Units/0.5 ml)) 5,000 unit Q12 SC Last administered on 09/02/17 08:38; Admin Dose 5,000 UNIT; Start 08/25/17 at 09:00 Methadone HCl (Methadone Liq (Ped)) 108 mg DAILY PO Last administered on 08:39; Admin Dose 108 MG; Start 08/25/17 at 12:00 Acetaminophen/ Hydrocodone Bitart ([place] (5/325)) 1 tab Q6H PRN PO PAIN LEVEL 4 -6 Last administered on 09/02/17 08:41; Admin Dose 1 TAB; Start 08/26/17 at 13:30 Hydroxyzine HCl (Atarax) 10 mg Q6H PRN PO ITCHING; Start 08/28/17 at 11:00 Polyethylene Glycol (Miralax) 17 gm DAILY PRN PO CONSTIPATION; Start 08/28/17 at 11:00 Vitamin A/Vitamin D (Vitamin A & D Oint) 1 applic BID TOP Last administered on 09/02/17 08:39; Admin Dose 1 APPLIC; Start 08/28/17 at 11:00 Risperidone (Risperdal) 0.5 mg BID PO Last administered on 09/02/17 08:36; Admin Dose 0.5 MG; Start 08/29/17 at 09:30 Famotidine (Pepcid) 20 mg DAILY PO Last administered on 09/02/17 08:36; Admin Dose 20 MG; Start 08/29/17 at 11:30 Fluoxetine HCl (Prozac) 30 mg DAILY PO Last administered on 09/02/17 08:36; Admin Dose 30 MG; Start 08/31/17 at 09:00 Gabapentin (Neurontin) 200 mg TID PO Last administered on 09/02/17 08:36; Admin Dose 200 MG; Start 09/01/17 at 21:00 Sodium Chloride (Deep Sea) 2 spray BID PRN NASAL congestion; Start 09/01/17 at 14:00 Phenol (Cepastat Lozenge) 1 lozenge Q1H PRN MT sore throat; Start 09/01/17 at 14:00 RICKY MUNIZ MD Sep 02, 2017 10:30
[2017-09-02] MEDS ORDERED: BENZ1LOZ4 MT (13:19)
[2017-09-02] MEDS ORDERED: SODI44SP19 NASAL (13:19)
[2017-09-02] MEDS ORDERED: POLY17PO6 PO (13:19)
[2017-09-02] MEDS ORDERED: GABA100C14 PO (13:19)
[2017-09-02] MEDS ORDERED: FLUO10CA17 PO (13:19)
[2017-09-02] MEDS ORDERED: RIS1 PO (13:19)
--- NOTE | 2017-09-02 13:22 | PDOCDIS ---
Discharge Instructions DIAGNOSIS Discharge Diagnosis 1. Acute kidney injury- resolved 2. Ekbom's syndrome (delusional parasitosis) 3. Hyponatremia- resolved 4. History of COPD 5. History of hepatitis C 6. leg pain/knee pain- resolved 7. hyperkalemia- resolved 8. Congestion CONDITION Patient Condition: Stable HOME CARE INSTRUCTIONS: Diet Instructions: Low Fat /Cholesterol ACTIVITY: Activity Restrictions: No Restrictions FOLLOW UP/APPOINTMENTS Follow-up Plan 1. Follow up with your primary care physician in 1 week 2. Please follow up with your outpatient psychiatrist to help with medications to calm your nerves about the bugs present in your home 3. Take medications as prescribed 4. Use Throat lozenges as needed for sore throat 5. Use nasal saline rinse as needed for congestion 6. Keep well hydrated 7. If symptoms worsen, please return to the ED RICKY MUNIZ MD Sep 02, 2017 13:22
--- NOTE | 2017-09-02 13:22 | DS ---
Date/Time of Note Date/Time of Note DATE: 09/02/17 TIME: 13:22 Discharge Summary Admission/Discharge Info Admit Date/Time Aug 24, 2017 at 18:52 Discharge Date/Time Discharge Diagnosis 1. Acute kidney injury- resolved 2. Ekbom's syndrome (delusional parasitosis) 3. Hyponatremia- resolved 4. History of COPD 5. History of hepatitis C 6. leg pain/knee pain- resolved 7. hyperkalemia- resolved 8. Congestion Patient Condition: Stable Procedures PROCEDURE: Renal US. CLINICAL INDICATION: ELEVATED CR TECHNIQUE: Multiple sonographic images of the kidneys were obtained. The images were reviewed on a PACS workstation. COMPARISON: No prior studies are available for comparison. FINDINGS: The kidneys are well visualized. The right kidney measures 8.7 x 3.9 x 4.8 cm. The left kidney measures 9.2 x 3.8 x 4.2 cm. There are no focal areas of abnormal echogenicity. No calculus or solid masses present. There is a 2 cm parenchymal cyst of the right kidney. There is no evidence for obstructive uropathy. No bladder masses stone is present. Bilateral ureteral jets were documented. IMPRESSION: No evidence of obstructive uropathy, calculus or solid renal mass. 2 cm parenchymal cyst right kidney. PROCEDURE: X-RAY LEFT KNEE CLINICAL INDICATION: Left knee pain. TECHNIQUE: Three views of the left knee are available for review. COMPARISON: None available FINDINGS: There is mild medial joint space narrowing and there is medial chondrocalcinosis. There is moderate arthrosis change of the lateral compartment and there is chondrocalcinosis. Minimal patellofemoral arthrosis is seen. There is mild fusiform thickening of the patellar tendon density which may indicate patellar tendonitis. There is a small joint effusion. The bones are osteopenic. No evidence for acute fracture. IMPRESSION: 1. Moderate lateral compartment and mild medial compartment and minimal patellofemoral arthrosis. 2. Meniscal chondrocalcinosis. Findings are most likely degenerative but can be seen with pseudogout. 3. No evidence for acute fracture. The bones are osteopenic. PROCEDURE: XR Chest. CLINICAL INDICATION: Cough. TECHNIQUE: Single frontal view of the chest was obtained COMPARISON: None FINDINGS: The heart and mediastinum are within normal limits. Probable calcified granuloma in the left upper lobe. No focal consolidations, pleural effusions, or pneumothorax is seen. The osseous structures are unremarkable. IMPRESSION: 1. No acute cardiopulmonary disease. Hx of Present Illness This is a 67-year-old female with a history of COPD, hepatitis C, IV drug use and cellulitis who initially presented to [facility] complaining of bugs coming out of her lips, ears and nose. She said mostly bugs crawls out of her lower lips and underneath her tongue. She also said she saw a bug from her left upper extremity and her lower extremities as well, the one on the lower extremity being winged. Patient is on active IV drug user. Lab shows a sodium of 128, BUN 30 and creatinine of 2.39. The rest of CBC and CMP were within normal limits. Her vitals were, BP 108/84, heart rate 114, respiratory rate 18, temp 36.3 and O2 sat of 98%. She was transferred to [facility] for insurance reasons. Constitutional: alert, oriented, other (Appears somehow tired) Head: atraumatic, normocephalic ENMT: other (The back of the tongue there are 2 small erythematous pimple-like structures) Neck: non-tender, supple Respiratory: clear to auscultation, normal air movement Cardiovascular: nl pulses, regular rate and rhythm Extremities: normal pulses Skin: other (She has several old scars on her extremities mainly in the left forearm.) Hospital Course Patient admitted for IAN and started on IV fluids. Renal US showed no acute abnormalities. Patient was also found to have Ekbom's syndrome (delusional parasitosis) that has been present for about a year according to significant other. Patient was started on risperidone with no relief and restarted on Prozac. Telepsych consultation placed and agreed with medication management and recommended outpatient psychiatry follow up. Patient was restarted on home methadone which she took due to history of IV heroin abuse. Patients renal function improved with IV fluids but she was persistent that there were bugs in her sputum and in her body. Patient would cry when told she was stable for discharge due to bugs being present at home. Per her significant other, he has had the house fumigated a few times and has not witness bug infestation that the patient keeps claiming. Explained that she would be best treated by a psychiatrist as outpatient. Patient was given nasal saline rinse for nasal congestion which she believed was secondary to bugs and throat lozenges for the sore throat caused by the bugs as well. Patient was continuously reassured that her concerns about the bugs as well as aging of her skin was nothing to be concerned about. patient finally agreeable to return home to be with her significant other and dog. Patients renal function had normalized and she was discharged in stable condition. Home Meds Active Scripts Polyethylene Glycol* (Miralax*) 17 Gm Powd.pack, 17 GM PO DAILY Y for CONSTIPATION for 30 Days, #30 PACKET Prov:RICKY MUNIZ MD 09/02/17 Saline (Deep Sea) 44 Ml [place], 2 SPRAY NASAL BID Y for congestion for 30 Days, # 1 SPRAY Prov:RICKY MUNIZ MD 09/02/17 Benzocaine/Menthol (SORE THROAT LOZENGE) 1 Each Lozenge, 1 LOZENGE MT Q1H Y for sore throat for 30 Days, #60 LOZENGE Prov:RICKY MUNIZ MD 09/02/17 Risperidone* (Risperdal*) 1 Mg Tablet, 0.5 MG PO BID for 30 Days, #60 TAB Prov:RICKY MUNIZ MD 09/02/17 Gabapentin* (Gabapentin*) 100 Mg Capsule, 200 MG PO TID for 30 Days, #90 CAP Prov:RICKY MUNIZ MD 09/02/17 Fluoxetine Hcl* (Fluoxetine Hcl*) 10 Mg Capsule, 30 MG PO DAILY for 30 Days, # 30 CAP Prov:RICKY MUNIZ MD 09/02/17 Reported Medications Hydroxyzine Hcl* (Hydroxyzine Hcl*) 25 Mg Tablet, 25 MG PO Q8H Y for ITCHING, # 30 TAB 08/24/17 Methadone Hcl* (Methadone Hcl*) 10 Mg/5 Ml Solution, 108 MG PO DAILY, ML 08/24/17 Discontinued Reported Medications Fluoxetine Hcl* (Prozac*) 20 Mg Capsule, 20 MG PO DAILY, CAP 08/24/17 Follow-up Plan 1. Follow up with your primary care physician in 1 week 2. Please follow up with your outpatient psychiatrist to help with medications to calm your nerves about the bugs present in your home 3. Take medications as prescribed 4. Use Throat lozenges as needed for sore throat 5. Use nasal saline rinse as needed for congestion 6. Keep well hydrated 7. If symptoms worsen, please return to the ED Primary Care Provider Vane TrevinoDO Time spent on discharge: > 30 minutes Copies To: CC: VANE TREVINO ERIN MD Sep 02, 2017 13:22
== END 2017-09-02 15:34 | disposition home or self-care (01) | DRG 683 ==
LOC: PP2 18:52
PROVIDERS: ADMIT Hospitalist; ATTEND Hospitalist
DX: N17.9 Acute kidney failure, unspecified (principal); E87.1 Hypo-osmolality and hyponatremia; J44.9 Chronic obstructive pulmonary disease, unspecified; F11.959 Opioid use, unspecified with opioid-induced psychotic disorder, unspecified; E87.5 Hyperkalemia; E83.42 Hypomagnesemia; F22 Delusional disorders; F29 Unspecified psychosis not due to a substance or known physiological condition
CPT/HCPCS: 71010; 73562; 76775; 80048; 80053; 80061; 80069; 81001; 82436; 82962; 83036; 83735; 84100; 84133; 84300; 84439; 84443; 85025; 86706; 86803; 87340; 87522; 94640; 94664; 97162; 97166; 97535; J1644; J2270; J2405; J3475; J7030